=== PATIENT | female | born 1945 | race Caucasian/White ===

== ENCOUNTER 2023-03-19 12:37 | Observation (INO) | payer OTHER, SELFPAY ==
[2023-03-19 12:52] VITALS: BP 141/84; PULSE 81; RESP 16; TEMP 36.7; O2SAT 97; BMI 24.0
[2023-03-19 13:48] LABS: PCR FLU A Negative PCR FLU A (Negative); PCR FLU B Negative PCR FLU B (Negative); PCR RSV Negative PCR RSV (Negative)
[2023-03-19 13:50] LABS: SARS PCR* Negative SARS-CoV-2 (Negative)
--- NOTE | 2023-03-19 16:35 | CRLHL7_ITS ---
For Patients: As a result of the Century Cures Act, medical imaging exams and procedure reports are released immediately into your electronic medical record. You may view this report before your referring provider. If you have questions, please contact your health care provider. CLINICAL HISTORY: Neck pain and vertigo. TECHNIQUE: CTA neck with contrast bolus tracking. 3D angiographic rendering using maximum intensity projection (MIP) and images permanently archived. COMPARISON: None available. 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 The origins of the great vessels are patent. The bilateral common carotid arteries are patent. The origins of the ICAs are patent without significant stenosis by NASCET criteria. The more distal cervical right ICA is patent. The origins and cervical segments of the vertebral arteries are patent. 5mm hypodense nodule in the left lobe of the thyroid gland. 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 Please note that all CT scans at this facility use dose modulation, iterative reconstruction, and/or weight-based dosing when appropriate to reduce radiation dose to as low as reasonably achievable. Dictated by Simone Palumbo MD @ 03/19/2023 6:54:01 PM (Electronically Signed)
--- NOTE | 2023-03-19 16:35 | CRLHL7_ITS ---
For Patients: As a result of the Century Cures Act, medical imaging exams and procedure reports are released immediately into your electronic medical record. You may view this report before your referring provider. If you have questions, please contact your health care provider. CLINICAL HISTORY: Neck pain and vertigo. TECHNIQUE: CTA head with contrast bolus tracking. 3D angiographic rendering using maximum intensity projection (MIP) and images permanently archived. COMPARISON: None available. FINDINGS: The petrous, cavernous, and supraclinoid segments of the internal carotid arteries are patent. The anterior and middle cerebral arteries are patent. The anterior communicating artery is visualized and is within normal limits. The intracranial vertebral arteries, basilar trunk, and posterior cerebral arteries are patent. No intracranial proximal large vessel occlusion or flow-limiting luminal stenosis. No evidence of cerebral aneurysm. No findings to suggest an arterial-venous shunting lesion. IMPRESSION: No intracranial proximal large vessel occlusion, flow-limiting luminal stenosis, or cerebral aneurysm. Please note that all CT scans at this facility use dose modulation, iterative reconstruction, and/or weight-based dosing when appropriate to reduce radiation dose to as low as reasonably achievable. Dictated by Simone Palumbo MD @ 03/19/2023 6:56:22 PM (Electronically Signed)
--- NOTE | 2023-03-19 16:47 | ED_ITS ---
HPI - General Adult General Date Seen: 03/19/23 Chief complaint: Nausea/Vomiting Stated complaint: possible flu Time Seen by Provider: 03/19/23 16:24 Source: patient and family Mode of arrival: ambulatory Limitations: no limitations History of Present Illness HPI narrative: Patient is a 77-year-old woman here with her daughter. She lives independently in her own home. Around 7:00 p.m. last night she developed vertigo, nausea vomiting and balance difficulties. She also developed some pain in the right lateral neck at that time. She denies any trauma to her head or neck. She says she gets headaches every day for the past 2 years. She has no prior history of vertigo. About 1 week ago she had some right ear pain which she thought was perhaps an ear infection, those symptoms have improved. She has not had fevers, diarrhea, abdominal pain, chest pain, palpitations or fainting. She did have difficulty getting here because whenever she moves her head, stands up or tries to walk she gets dry heaves. She denies other neurologic symptoms. Related Data Home Medications Medication Instructions Recorded Confirmed atorvastatin 10 mg tablet 10 mg PO DAILY 03/19/23 03/19/23 bupropion HCl 150 mg tablet,12 hr 150 mg PO Q12H 03/19/23 03/19/23 sustained-release raloxifene 60 mg tablet 60 mg PO DAILY 03/19/23 03/19/23 Allergies Allergy/AdvReac Type Severity Reaction Status Date / Time No Known Drug Allergies Allergy Verified 03/19/23 12:51 Review of Systems Status of ROS: Reports: 10 or more systems reviewed and unremarkable except as noted in History and below PFSH PFS Social History Smoking Status: Never smoker Do you use any of these nicotine containing products: None Second hand tobacco smoke exposure: No How often do you have a drink containing alcohol: never AUDIT-C Alcohol total score: 0 Non-prescribed substance use: denies use service: No Exam Narrative: Exam Narrative: Vital signs as noted above. In general, an alert, well-appearing patient. Comfortable sitting still in bed. Head: Normocephalic, atraumatic. Eyes: Pupils are equal reactive. Extraocular movements are full. Conjunctivae are normal. Mild nystagmus noted on rightward gaze. ENT: Mucous membranes are moist. Throat is normal. Tongue is midline. Neck: Supple without lymphadenopathy. Some tenderness along the right side of her neck, no masses, erythema, bruit. Heart: Regular rate and rhythm. No murmur or rub. Lungs: Clear bilaterally. No increased work of breathing, crackles or wheezes. Abdomen: Soft and nontender. No organomegaly. Extremities: Well perfused. No edema. No calf tenderness. Pulses intact. Neurologic: Patient is alert and oriented to person and place. Speech is fluent. Face is symmetric. Moves all extremities equally. Cerebellar function intact by finger-nose and heel-oleary testing. Affect: Normal. Skin: Warm and dry. Well perfused. Const: Vital Signs, click to edit/add: Vital Signs - 24 hr 03/19/23 12:52 Temperature 98.1 F Pulse Rate [Pulse Oximeter] 81 Respiratory Rate 16 Blood Pressure [Le ft Upper Arm] 141/84 H Pulse Oximetry 97 Oxygen Delivery Me thod Room Air Documenting provider has reviewed patient's vital signs: yes Course Course ED Course: Given her age, daily headaches, right neck pain, I elected to do some imaging. MRI is not available due to the hour of the day, getting a CT angiogram of the head and neck and a plain CT of the head. Labs pending. We will go ahead and treat symptoms of vertigo with Zofran, fluids, meclizine. By my review, CT of the head did not show acute findings. Final radiology read is negative. 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 The origins of the great vessels are patent. The bilateral common carotid arteries are patent. The origins of the ICAs are patent without significant stenosis by NASCET criteria. The more distal cervical right ICA is patent. The origins and cervical segments of the vertebral arteries are patent. 5mm hypodense nodule in the left lobe of the thyroid gland. 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 I discussed these findings with Dr. Liu, on-call for Neurology at [facility]. She feels that this is probably a chronic finding and does not require acute intervention. She did recommend MRI to evaluate for stroke given patient's age and onset of symptoms, but given that she has been symptomatic for 24 hours at this point this does not need to be done urgently. Plan will be admission to the hospital for MRI tomorrow morning. She still feels dizzy but is improved after medications. Labs are unremarkable. Vital Signs Vital signs: Initial Vital Signs Temperature 98.1 F 03/19/23 12:52 Temperature Source Temporal Artery Scan 03/19/23 12:52 Pulse Rate 81 03/19/23 12:52 Pulse Rhythm Regular 03/19/23 12:52 Pulse Strength 3+ Normal 03/19/23 12:52 Respiratory Rate 16 03/19/23 12:52 Blood Pressure 141/84 H 03/19/23 12:52 Blood Pressure Mean 103 03/19/23 12:52 Blood Pressure Position Sitting 03/19/23 12:52 Pulse Oximetry 97 03/19/23 12:52 Oxygen Delivery Method Room Air 03/19/23 12:52 Vital Signs Temperature 98.1 F 03/19/23 12:52 Pulse Rate 81 03/19/23 12:52 Respiratory Rate 16 03/19/23 12:52 Blood Pressure 141/84 H 03/19/23 12:52 Pulse Oximetry 97 03/19/23 12:52 Oxygen Delivery Method Room Air 03/19/23 12:52 Temperature 98.1 F 03/19/23 12:52 Pulse Rate 81 03/19/23 12:52 Respiratory Rate 16 03/19/23 12:52 Blood Pressure 141/84 H 03/19/23 12:52 Pulse Oximetry 97 03/19/23 12:52 Oxygen Delivery Method Room Air 03/19/23 12:52 Medical Decision Making Lab Data Labs: Lab Results 03/19/23 03/19/23 03/19/23 Range/Units 16:36 17:20 17:29 WBC 5.56 (4.50-11.00) K/uL RBC 4.68 (4.00-5.20) m/uL Hgb 14.3 (12.0-16.0) gm/dL Hct 44.3 (33.0-51.0) % MCV 95 (80-100) fL MCH 31 (26-34) pg MCHC 32 (32-36) gm/dL RDW Coeff of Parth 13.2 (11.5-15.5) % Plt Count 303 (140-440) K/uL Neut % (Auto) 60.1 (42.0-72.0) % Lymph % (Auto) 29.5 (20-44) % [place] % (Auto) 8.5 (0.0-11.0) % Eos % (Auto) 1.3 (0.0-7.0) % Baso % (Auto) 0.4 (0.0-3.0) % Neut # (Auto) 3.35 (1.7-7.0) K/uL Lymph # (Auto) 1.64 (0.90-2.90) K/uL [place] # (Auto) 0.50 (0.00-0.90) K/UL Eos # (Auto) 0.07 (0.00-0.50) K/uL Baso # (Auto) 0.02 (0.00-0.30) K/uL Abs Immat Gran (auto) 0.01 (0.00-0.30) K/uL Imm/Tot Granulo (auto) 0.2 % Sodium 143 (135-149) mmol/L Potassium 3.9 (3.6-5.1) mmol/L Chloride 110 (96-114) mmol/L Carbon Dioxide 27 (20-32) mmol/L Anion Gap 6 L (7-15) mEq/L BUN 24 (7-30) mg/dL Creatinine 0.6 (0.5-1.5) mg/dL Estimated Creat Clear 38.80 Estimated GFR 92 ml/min Glucose 90 (60-115) mg/dL Calcium 8.8 (8.4-10.6) mg/dL Total Bilirubin 0.4 (0.1-1.5) mg/dL Direct Bilirubin 0.0 (0.0-0.5) mg/dL AST 38 H (12-35) U/L ALT 28 (4-35) U/L Alkaline Phosphatase 75 (40-150) U/L Total Protein 6.8 (6.0-8.3) g/dL Albumin 4.0 (3.3-5.0) g/dL SARS-CoV-2 (PCR) (Negative) Influenza Type A (PCR) (Negative) Influenza Type B (PCR) (Negative) RSV (PCR) (Negative) POC Creatinine 0.7 (0.6-1.3) mg/dl POC Troponin I 0.00 L (0.01-0.04) ng/ml 03/19/23 Range/Units Unknown WBC (4.50-11.00) K/uL RBC (4.00-5.20) m/uL Hgb (12.0-16.0) gm/dL Hct (33.0-51.0) % MCV (80-100) fL MCH (26-34) pg MCHC (32-36) gm/dL RDW Coeff of Parth (11.5-15.5) % Plt Count (140-440) K/uL Neut % (Auto) (42.0-72.0) % Lymph % (Auto) (20-44) % [place] % (Auto) (0.0-11.0) % Eos % (Auto) (0.0-7.0) % Baso % (Auto) (0.0-3.0) % Neut # (Auto) (1.7-7.0) K/uL Lymph # (Auto) (0.90-2.90) K/uL [place] # (Auto) (0.00-0.90) K/UL Eos # (Auto) (0.00-0.50) K/uL Baso # (Auto) (0.00-0.30) K/uL Abs Immat Gran (auto) (0.00-0.30) K/uL Imm/Tot Granulo (auto) % Sodium (135-149) mmol/L Potassium (3.6-5.1) mmol/L Chloride (96-114) mmol/L Carbon Dioxide (20-32) mmol/L Anion Gap (7-15) mEq/L BUN (7-30) mg/dL Creatinine (0.5-1.5) mg/dL Estimated Creat Clear Estimated GFR ml/min Glucose (60-115) mg/dL Calcium (8.4-10.6) mg/dL Total Bilirubin (0.1-1.5) mg/dL Direct Bilirubin (0.0-0.5) mg/dL AST (12-35) U/L ALT (4-35) U/L Alkaline Phosphatase (40-150) U/L Total Protein (6.0-8.3) g/dL Albumin (3.3-5.0) g/dL SARS-CoV-2 (PCR) Negative SARS-CoV-2 (Negative) Influenza Type A (PCR) Negative PCR FLU A (Negative) Influenza Type B (PCR) Negative PCR FLU B (Negative) RSV (PCR) Negative PCR RSV (Negative) POC Creatinine (0.6-1.3) mg/dl POC Troponin I (0.01-0.04) ng/ml Discharge Plan Discharge Prescriptions: No Action bupropion HCl 150 mg tablet sustained-release 12 hr 150 mg PO Q12H atorvastatin 10 mg tablet 10 mg PO DAILY raloxifene 60 mg tablet 60 mg PO DAILY Follow Up/Referrals: Alley Dixon MD [Primary Care Provider] -
--- NOTE | 2023-03-19 16:48 | CRLHL7_ITS ---
For Patients: As a result of the Century Cures Act, medical imaging exams and procedure reports are released immediately into your electronic medical record. You may view this report before your referring provider. If you have questions, please contact your health care provider. CLINICAL HISTORY: Daily headaches; vertigo. TECHNIQUE: Standard helical CT image acquisition of the brain was performed. COMPARISON: Head CT dated 03/01/2018. FINDINGS: There is no intracranial hemorrhage, extra-axial collection, mass effect, or midline shift. Ott-white matter differentiation is preserved. Mild generalized parenchymal volume loss. No acute hydrocephalus. Patchy hypoattenuation in the white matter of both hemispheres likely reflects sequela of chronic small vessel ischemia. Intracranial atherosclerotic calcification. The calvarium is unremarkable. The orbits are unremarkable. Subtotal opacification of the left sphenoid sinus and complete opacification of the right sphenoid sinus with internal areas of mineralization/calcification. Thickening of the osseous de [place] vega of the right greater than left sphenoid sinus suggesting chronic sinusitis. The mastoid air cells are unremarkable. 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 IMPRESSION: 1. No CT evidence of acute intracranial abnormality. 2. Senescent changes including generalized parenchymal volume loss and findings likely reflecting sequela of chronic small vessel ischemia. 3. Chronic bilateral sphenoid sinusitis. Please note that all CT scans at this facility use dose modulation, iterative reconstruction, and/or weight-based dosing when appropriate to reduce radiation dose to as low as reasonably achievable. Dictated by Simone Palumbo MD @ 03/19/2023 6:31:44 PM (Electronically Signed)
[2023-03-19] MEDS: ONDANSETRON 2 MG/ML inj 4 MG IVP (17:21)
[2023-03-19] MEDS: 0.9 % SODIUM CHLORIDE 1000 ml 1,000 ML IV (17:21)
[2023-03-19] MEDS: MECLIZINE HCL 25 MG TABLET PO (17:21)
[2023-03-19 17:33] LABS: Creatinine, Point-of-Care* 0.7 mg/dl (0.6-1.3)
[2023-03-19 17:43] LABS: Basophils Absolute Auto 0.02 K/uL (0.00-0.30); Basophils Percent Auto 0.4 % (0.0-3.0); Eosinophils Absolute Auto 0.07 K/uL (0.00-0.50); Eosinophils Percent Auto 1.3 % (0.0-7.0); Hematocrit 44.3 % (33.0-51.0); Hemoglobin* 14.3 gm/dL (12.0-16.0); Immature Granulocytes Abs Auto 0.01 K/uL (0.00-0.30); Immature Granulocytes Pct Auto 0.2 %; Lymphocytes Absolute Auto 1.64 K/uL (0.90-2.90); Lymphocytes Percent Auto 29.5 % (20-44); Mean Corpuscular HGB Conc 32 gm/dL (32-36); Mean Corpuscular Hemoglobin 31 pg (26-34); Mean Corpuscular Volume 95 fL (80-100); Monocytes Percent Auto 8.5 % (0.0-11.0); Neutrophils Absolute Auto 3.35 K/uL (1.7-7.0); Neutrophils Percent Auto 60.1 % (42.0-72.0); Platelet Count* 303 K/uL (140-440); RDW Coefficient of Variation % 13.2 % (11.5-15.5); Red Blood Count 4.68 m/uL (4.00-5.20); White Blood Count* 5.56 K/uL (4.50-11.00)
[2023-03-19 17:48] LABS: Slide Review Reflex No
[2023-03-19 17:58] LABS: Chloride* 110 mmol/L (96-114); Potassium* 3.9 mmol/L (3.6-5.1); Sodium* 143 mmol/L (135-149)
[2023-03-19 18:00] LABS: Creatinine* 0.6 mg/dL (0.5-1.5); Estimated Glomerular Filt Rate 92 ml/min
[2023-03-19 18:01] LABS: Alanine Aminotransferase* 28 U/L (4-35); Alkaline Phosphatase* 75 U/L (40-150); Anion Gap 6 mEq/L (7-15); Aspartate Amino Transferase* 38 U/L (12-35); Bilirubin Total* 0.4 mg/dL (0.1-1.5); Blood Urea Nitrogen* 24 mg/dL (7-30); Carbon Dioxide* 27 mmol/L (20-32); Glucose* 90 mg/dL (60-115); Total Protein* 6.8 g/dL (6.0-8.3)
[2023-03-19 18:02] LABS: Calcium* 8.8 mg/dL (8.4-10.6)
[2023-03-19] MEDS: ASPIRIN 81 MG TAB.CHEW 324 MG PO (19:29)
--- NOTE | 2023-03-19 19:51 | PM.IMHP1 ---
Hospitalist- H&P: HPI History of Present Illness Date Seen: 03/19/23 Chief complaint: Vertigo Narrative: Kemi Smith is a 77 year old female admitted through the emergency department with onset last evening of vertigo. She was in her usual state of good health until after dinner last night when she felt dizzy. She was trying to walk to a chair to sit down and she fell over. She did not injure herself or hit her head. As she was laying down she recognized that the room was spinning. She started having vomiting. She had recurrent vomiting through the evening. Eventually she fell asleep. When she awoke around 4:00 a.m. she still had vertigo. She was unable to get up and walk due to being unsteady on her feet and persistent feeling of the room spinning. Because of this she came to the emergency room for evaluation. She reports no other neurologic symptoms. She has no blurry vision or double vision. She has no numbness or tingling or weakness. Two weeks ago she had a ear ache in her right ear which has resolved. She has not had a recent respiratory illness. No fever, cold, cough. No recent change in her hearing. She has not had a head injury. She has had no previous problems like this. No previous stroke or TIA. Review of Systems Narrative: Prior to the last day she reports feeling entirely well. [facility] Medical History (Updated 03/19/23 @ 20:07 by Guanaco Whitney MD) Normal colonoscopy Seasonal allergic rhinitis ?J30.2 - Other seasonal allergic rhinitis (ICD-10) Sensorineural hearing loss ?H90.5 - Unspecified sensorineural hearing loss (ICD-10) Restless legs syndrome ?G25.81 - Restless legs syndrome (ICD-10) Osteoporosis ?M81.0 - Age-related osteoporosis without current pathological fracture (ICD-10) Hyperlipidemia ?E78.5 - Hyperlipidemia, unspecified (ICD-10) Surgical History (Updated 03/19/23 @ 19:57 by Guanaco Whitney MD) H/O nasal septoplasty ?Z98.890 - Other specified postprocedural states (ICD-10) H/O vaginal hysterectomy ?Z90.710 - Acquired absence of both cervix and uterus (ICD-10) History of tonsillectomy and adenoidectomy ?Z90.89 - Acquired absence of other organs (ICD-10) H/O breast biopsy ?Z98.890 - Other specified postprocedural states (ICD-10) H/O tubal ligation ?Z98.51 - Tubal ligation status (ICD-10) Family History (Updated 03/19/23 @ 19:58 by Guanaco Whitney MD) Daughter Thyroid disease Diabetes Father Coronary artery disease Social History (Updated 03/19/23 @ 20:00 by Guanaco Whitney MD) Narrative: She lives alone in her own home in [place]. 1 year ago. She has 2 daughters living in [place]. Granddaughter, Iza, living in [place] is healthcare power of patent prosecution attorney. Code status is DNR. She does not smoke. She does not drink alcohol. Smoking Status: Never smoker Do you use any of these nicotine containing products: None Second hand tobacco smoke exposure: No How often do you have a drink containing alcohol: never AUDIT-C Alcohol total score: 0 Non-prescribed substance use: denies use service: No Meds Home Medications and Allergies Home Medications Medication Instructions Recorded Confirmed Type atorvastatin 10 mg tablet 10 mg PO DAILY 03/19/23 03/19/23 History bupropion HCl 150 mg tablet,12 hr 150 mg PO Q12H 03/19/23 03/19/23 History sustained-release fluticasone propionate 50 intranasal 03/19/23 History mcg/actuation nasal spray,suspension raloxifene 60 mg tablet 60 mg PO DAILY 03/19/23 03/19/23 History Allergies Allergy/AdvReac Type Severity Reaction Status Date / Time No Known Drug Allergies Allergy Verified 03/19/23 12:51 Exam Narrative: Exam Narrative: She is alert and appears in no distress. Mood and affect are bright. Head is without evidence of trauma. Eyes are normal. Pupils are equal round reactive to light. Extraocular movements are full. She has conjugate gaze. Visual martinez are intact. She has no facial asymmetry. Pinnas external canals TMs bilaterally normal. Oropharynx is normal. Tongue is midline. Mucous membranes are moist. Neck is supple without mass or adenopathy. Having her turn head [id number] does not reproduce vertigo or dizziness. Respirations are clear to auscultation. Breathing is unlabored. Cardiovascular: S1, S2, regular rate and rhythm. No murmur gallop or rub. Abdomen: Bowel sounds active. Abdomen is soft without tenderness or mass. Upper extremity strength testing shows 5/5 strength in finger extension, emergency management consultant strength, wrist flexion, wrist extension, elbow flexion and extension, shoulder flexion extension bilaterally. [id number] is normal and accurate bilaterally. Lower extremity strength is 5/5 in hip flexion, knee flexion extension, ankle dorsiflexion and plantar flexion and great toe dorsiflexion bilaterally. Heel-oleary is bilaterally normal. She has no edema. Intact peripheral pulses. Const: Vital Signs, click to edit/add: Vital Signs - 24 hr 03/19/23 12:52 Temperature 98.1 F Pulse Rate [Pulse Oximeter] 81 Respiratory Rate 16 Blood Pressure [Le ft Upper Arm] 141/84 H Pulse Oximetry 97 Oxygen Delivery Me thod Room Air Documenting provider has reviewed patient's vital signs: yes Hospitalist - H&P: Result Labs Labs: Short CBC 03/19/23 Range/Units 17:20 WBC 5.56 (4.50-11.00) K/uL Hgb 14.3 (12.0-16.0) gm/dL Hct 44.3 (33.0-51.0) % Plt Count 303 (140-440) K/uL BMP 03/19/23 17:20 Sodium 143 Potassium 3.9 Chloride 110 Carbon Dioxide 27 BUN 24 Creatinine 0.6 Glucose 90 Calcium 8.8 Liver Function 03/19/23 Range/Units 17:20 Total Bilirubin 0.4 (0.1-1.5) mg/dL Direct Bilirubin 0.0 (0.0-0.5) mg/dL AST 38 H (12-35) U/L ALT 28 (4-35) U/L Alkaline Phosphatase 75 (40-150) U/L Albumin 4.0 (3.3-5.0) g/dL Imaging CT scan - head: Radiologist's impression: CLINICAL HISTORY: Daily headaches; vertigo. TECHNIQUE: Standard helical CT image acquisition of the brain was performed. COMPARISON: Head CT dated 03/01/2018. FINDINGS: There is no intracranial hemorrhage, extra-axial collection, mass effect, or midline shift. Ott-white matter differentiation is preserved. Mild generalized parenchymal volume loss. No acute hydrocephalus. Patchy hypoattenuation in the white matter of both hemispheres likely reflects sequela of chronic small vessel ischemia. Intracranial atherosclerotic calcification. The calvarium is unremarkable. The orbits are unremarkable. Subtotal opacification of the left sphenoid sinus and complete opacification of the right sphenoid sinus with internal areas of mineralization/calcification. Thickening of the osseous de [place] vega of the right greater than left sphenoid sinus suggesting chronic sinusitis. The mastoid air cells are unremarkable. 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 IMPRESSION: 1. No CT evidence of acute intracranial abnormality. 2. Senescent changes including generalized parenchymal volume loss and findings likely reflecting sequela of chronic small vessel ischemia. 3. Chronic bilateral sphenoid sinusitis. CT- Other: Radiologist's impression: CTA head: TECHNIQUE: CTA head with contrast bolus tracking. 3D angiographic rendering using maximum intensity projection (MIP) and images permanently archived. COMPARISON: None available. FINDINGS: The petrous, cavernous, and supraclinoid segments of the internal carotid arteries are patent. The anterior and middle cerebral arteries are patent. The anterior communicating artery is visualized and is within normal limits. The intracranial vertebral arteries, basilar trunk, and posterior cerebral arteries are patent. No intracranial proximal large vessel occlusion or flow-limiting luminal stenosis. No evidence of cerebral aneurysm. No findings to suggest an arterial-venous shunting lesion. IMPRESSION: No intracranial proximal large vessel occlusion, flow-limiting luminal stenosis, or cerebral aneurysm. CLINICAL HISTORY: Neck pain and vertigo. CTA neck: TECHNIQUE: CTA neck with contrast bolus tracking. 3D angiographic rendering using maximum intensity projection (MIP) and images permanently archived. COMPARISON: None available. 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 The origins of the great vessels are patent. The bilateral common carotid arteries are patent. The origins of the ICAs are patent without significant stenosis by NASCET criteria. The more distal cervical right ICA is patent. The origins and cervical segments of the vertebral arteries are patent. 5mm hypodense nodule in the left lobe of the thyroid gland. 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 Assessment and Plan Assessment and plan (1) Vertigo: Problem comment: Patient presents with 1 day history of vertigo. Clinically improved today. Stroke Neurology recommends MRI to assess for posterior circulation stroke. Status: Acute (2) History of dissection of internal carotid artery: Problem comment: Stroke neurologist felt this was not acute. Treatment is daily aspirin. Status: Acute Plan Patient is admitted to the hospital for management of vertigo, monitoring for stroke and evaluation of stroke risk factors. MRI in the morning. Total time spent today is 60 minutes, 45 minutes in coordination of care discussing with patient other providers ongoing evaluation management of vertigo
[2023-03-19 20:30] VITALS: BP 171/86; RESP 16; TEMP 36.7; O2SAT 97; BMI 23.9
[2023-03-19] MEDS: ACETAMINOPHEN 325 MG TABLET 650 MG PO (21:17)
[2023-03-19] MEDS: SODIUM CHLORIDE 0.9 % (FLUSH) 10 ML SYRINGE 5 ML IVF (21:18)
[2023-03-19 23:00] VITALS: BP 139/77; RESP 16; TEMP 36.7; O2SAT 96
[2023-03-19 23:14] VITALS: PULSE 81
[2023-03-20] MEDS: ACETAMINOPHEN 325 MG TABLET 650 MG PO ×2 (01:48→08:44)
[2023-03-20 03:00] VITALS: BP 141/81; PULSE 95; RESP 18; O2SAT 95
--- NOTE | 2023-03-20 05:09 | PC.NURSE ---
Pt arrived to unit approx 2024, pleasant and cooperative. states she has little vertigo, denies N/V. C/O headache and neck pain, prn tylenol administered and pt headache and neck pain 0/10. able to sleep during night. SBA to br, tolerated activity fair, vertigo present. tolerated po intake.
[2023-03-20 07:00] VITALS: BP 139/75; PULSE 71; PULSE 72; RESP 18; TEMP 36.5; O2SAT 96
[2023-03-20] MEDS: ASPIRIN 81 MG TAB.CHEW PO (08:43)
[2023-03-20] MEDS: buPROPion HCL SR 150 MG TAB PO (08:43)
--- NOTE | 2023-03-20 11:15 | CRLHL7_ITS ---
For Patients: As a result of the Century Cures Act, medical imaging exams and procedure reports are released immediately into your electronic medical record. You may view this report before your referring provider. If you have questions, please contact your health care provider. Indication: Vertigo. Technique: Multiplanar, multisequence MRI of the brain was performed without intravenous contrast. Comparison: CT head 03/19/2023. Findings: Slight thinning of the corpus callosum. The pituitary gland and clivus appear intact. Mild degenerative change visualized upper cervical spine. There is no restricted diffusion. No intracranial hemorrhage. The ventricles are proportionate to the cerebral sulci. The 4th ventricle appears midline. The basal cisterns appear patent. No abnormal extra-axial fluid collection identified. Mild parenchymal volume loss. Moderate to severe T2 FLAIR hyperintense foci within the subcortical and periventricular white matter, favored to represent chronic ischemic microvascular disease. There is no intracranial mass, abnormal mass-effect or midline shift identified. Major intracranial vascular flow voids appear grossly intact. Both globes are preserved. Mild to moderate paranasal sinus mucosal disease. Impression: 1. No acute/subacute infarct. 2. Moderate to severe chronic ischemic microvascular disease. Dictated by Irving Collier MD @ 03/20/2023 12:56:09 PM (Electronically Signed)
[2023-03-20 14:00] VITALS: BP 145/96; BP 147/93; BP 160/94; PULSE 105; PULSE 92; PULSE 97
--- NOTE | 2023-03-20 16:05 | P.DS_ITS ---
DS: Providers Provider Time Seen by Provider: 15:00 Date Seen: 03/20/23 Date of admission: 03/19/23 20:25 Primary care physician: Alley Dxion MD Admitting Clinician: Guanaco Whitney MD Consults: 03/19/23 19:48 Consult to Occupational Therapy [CONS] Routine Comment: Reason(s) for OT Consult:: Evaluate and Treat Any Restrictions?:: No Restrictions Consult to Physical Therapy [CONS] Routine Comment: Reason(s) for PT Consult:: Evaluate and Treat Any Restrictions?:: No Restrictions Attending Physician on discharge: Kenroy Grace MD Date of Discharge: 03/20/23 DS: Diagnosis Discharge Diagnosis (1) Vertigo: Status: Acute Problem details: Patient presents with 1 day history of vertigo. Clinically improved today. Stroke Neurology recommends MRI to assess for posterior circulation stroke. (2) Acute vestibular neuritis: Status: Acute (3) History of dissection of internal carotid artery: Status: Acute Problem details: Stroke neurologist felt this was not acute. Treatment is daily aspirin. (4) Small vessel disease, cerebrovascular: Status: Acute DS: Summary Hospital Course Hospital Course: History of present illness: ?Kemi Smith is a 77 year old female admitted through the emergency department with onset last evening of vertigo. She was in her usual state of good health until after dinner last night when she felt dizzy. She was trying to walk to a chair to sit down and she fell over. She did not injure herself or hit her head. As she was laying down she recognized that the room was spinning. She started having vomiting. She had recurrent vomiting through the evening. Eventually she fell asleep. When she awoke around 4:00 a.m. she still had vertigo. She was unable to get up and walk due to being unsteady on her feet and persistent feeling of the room spinning. Because of this she came to the emergency room for evaluation. She reports no other neurologic symptoms. She has no blurry vision or double vision. She has no numbness or tingling or weakness. Two weeks ago she had a ear ache in her right ear which has resolved. She has not had a recent respiratory illness. No fever, cold, cough. No recent change in her hearing. She has not had a head injury. She has had no previous problems like this. No previous stroke or TIA. We treated patient symptomatically when she arrived on the hospital floor and gradually her symptoms for the most part entirely resolved. We were not able to see spontaneous nystagmus. We were not able to induce any nystagmus. She did much better with use of a walker for her balance. CT angiogram of the head and neck revealed the chronic carotid dissection, not acute. Discussed with neurologist who recommended chronic regular use of baby aspirin once daily hereafter. MR scan of the brain demonstrated no posterior cerebellar stroke or hematoma, only chronic small vessel ischemic changes. Patient discharged home with ongoing assessment and treatment per physical therapy and occupational therapy. She will keep follow-up appointments with her primary care physician and return to the clinic or hospital sooner as warranted. Status at Discharge Functional status at discharge: uses cane/walker Overall status at discharge: patient is progressing back to baseline Time Spent with Patient Time attestation: Total time spent providing and/or coordinating discharge services: Time spent: Greater than 30 minutes Exam Narrative: Exam Narrative: She is alert and appears in no distress. Mood and affect are bright. Head is without evidence of trauma. Eyes are normal. Pupils are equal round reactive to light. Extraocular movements are full. She has conjugate gaze. Visual martinez are intact. She has no facial asymmetry. Pinnas external canals TMs bilaterally normal. Oropharynx is normal. Tongue is midline. Mucous membranes are moist. Neck is supple without mass or adenopathy. Having her turn head [id number] does not reproduce vertigo or dizziness. Respirations are clear to auscultation. Breathing is unlabored. Cardiovascular: S1, S2, regular rate and rhythm. No murmur gallop or rub. Abdomen: Bowel sounds active. Abdomen is soft without tenderness or mass. Upper extremity strength testing shows 5/5 strength in finger extension, communications manager strength, wrist flexion, wrist extension, elbow flexion and extension, shoulder flexion extension bilaterally. Bxmnku-vqvq-nuoabs is normal and accurate bilaterally. Lower extremity strength is 5/5 in hip flexion, knee flexion extension, ankle dorsiflexion and plantar flexion and great toe dorsiflexion bilaterally. Heel-oleary is bilaterally normal. She has no edema. Intact peripheral pulses. Transferring and ambulating independently with use of walker. No orthostatic blood pressure or heart rate changes or symptoms. Const: Vital Signs, click to edit/add: Vital Signs - 24 hr 03/19/23 20:30 03/19/23 20:30 03/19/23 23:00 Temperature 98.1 F 98.1 F Pulse Rate Pulse Rate [Pulse Oximeter] Respiratory Rate 16 16 16 Blood Pressure [Le ft Arm] 171/86 H 139/77 Pulse Oximetry 97 97 96 Oxygen Delivery Me thod Room Air Room Air Room Air 03/19/23 23:14 03/20/23 03:00 03/20/23 07:00 Temperature Pulse Rate 81 71 Pulse Rate [Pulse Oximeter] 95 Respiratory Rate 18 Blood Pressure [Le ft Arm] 141/81 H Pulse Oximetry 95 Oxygen Delivery Me thod Room Air 03/20/23 07:00 Temperature 97.7 F Pulse Rate Pulse Rate [Pulse Oximeter] 72 Respiratory Rate 18 Blood Pressure [Le ft Arm] 139/75 Pulse Oximetry 96 Oxygen Delivery Me thod Room Air Documenting provider has reviewed patient's vital signs: yes DS: Data Data Completed and Pending Labs on day of discharge: Labs from last 24 hours 03/19/23 03/19/23 03/19/23 17:29 17:20 16:36 WBC 5.56 RBC 4.68 Hgb 14.3 Hct 44.3 MCV 95 MCH 31 MCHC 32 RDW Coeff of Parth 13.2 Plt Count 303 Neut % (Auto) 60.1 Lymph % (Auto) 29.5 [place] % (Auto) 8.5 Eos % (Auto) 1.3 Baso % (Auto) 0.4 Neut # (Auto) 3.35 Lymph # (Auto) 1.64 [place] # (Auto) 0.50 Eos # (Auto) 0.07 Baso # (Auto) 0.02 Abs Immat Gran (auto) 0.01 Imm/Tot Granulo (auto) 0.2 Sodium 143 Potassium 3.9 Chloride 110 Carbon Dioxide 27 Anion Gap 6 L BUN 24 Creatinine 0.6 Estimated Creat Clear 38.80 Estimated GFR 92 Glucose 90 Calcium 8.8 Total Bilirubin 0.4 Direct Bilirubin 0.0 AST 38 H ALT 28 Alkaline Phosphatase 75 Total Protein 6.8 Albumin 4.0 POC Creatinine 0.7 POC Troponin I 0.00 L Imaging MR Brain: Attestation: I have reviewed the pertinent imaging results. Radiologist's impression: Findings: Slight thinning of the corpus callosum. The pituitary gland and clivus appear intact. Mild degenerative change visualized upper cervical spine. There is no restricted diffusion. No intracranial hemorrhage. The ventricles are proportionate to the cerebral sulci. The 4th ventricle appears midline. The basal cisterns appear patent. No abnormal extra-axial fluid collection identified. Mild parenchymal volume loss. Moderate to severe T2 FLAIR hyperintense foci within the subcortical and periventricular white matter, favored to represent chronic ischemic microvascular disease. There is no intracranial mass, abnormal mass-effect or midline shift identified. Major intracranial vascular flow voids appear grossly intact. Both globes are preserved. Mild to moderate paranasal sinus mucosal disease. Impression: 1. No acute/subacute infarct. 2. Moderate to severe chronic ischemic microvascular disease. CT scan - head: Attestation: I have reviewed the pertinent imaging results. Radiologist's impression: 03/19/2023 Impression: 1. No CT evidence of acute intracranial abnormality. 2. Senescent changes including generalized parenchymal volume loss and findings likely reflecting sequela of chronic small vessel ischemia. 3. Chronic bilateral sphenoid sinusitis. CT angiogram of neck: Attestation: I have reviewed the pertinent imaging results. 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 CT angiogram of the head: Attestation: I have reviewed the pertinent imaging results. Radiologist's impression: IMPRESSION: No intracranial proximal large vessel occlusion, flow-limiting luminal stenosis, or cerebral aneurysm. Discharge Plan Discharge Disposition: Home, Self-Care Date of Admission: 03/19/23 20:25 Attending Provider on Discharge: Kenroy Grace Primary Care Provider: Alley Dixon Condition: Improved Anticipated Discharge Date/Time: 03/20/23 16:30 Discharge Medications: New aspirin [Adult Low Dose Aspirin] 81 mg tablet,delayed release (DR/EC) 81 mg PO DAILY Qty: 100 2RF Continued bupropion HCl 150 mg tablet sustained-release 12 hr 150 mg PO BID atorvastatin 10 mg tablet 10 mg PO HS raloxifene 60 mg tablet 60 mg PO DAILY fluticasone propionate 50 mcg/actuation spray,suspension 1 spray INTRANASAL DAILY Patient Comments: [NO ORIGINAL SIG] cholecalciferol (vitamin D3) 25 mcg (1,000 unit) tablet 25 mcg PO DAILY Discharge Orders: Discharge Order (Routine); Ordered 03/20/23 Ordered By: Kenroy R Sanjay Patient Education: Aspirin (By mouth), Low Fat Diet (DC), Vertigo (DC), Carotid Artery Disease (DC), Dizziness (GEN) Additional Instructions: 1. Keep your appointment with your primary care physician as already set for ne xt week; 2. Use walker when ambulating, for balance; 3. See outpatient physical and occupational therapy to assess and treat; 4. Continue with your other treatment plans. Activity Level: Activity as Tolerated and Use Walker Discharge Diet: Low Fat/Low Cholesterol Follow Up Appointments: Alley Dixon MD [Primary Care Provider] - Forms: [facility]
--- NOTE | 2023-03-20 16:37 | PC.NURSE ---
pt up SBA. pt had slight dizziness upon changing positions this a.m. Pt stated this a.m she had a 6/10 frontal MENDES. Pt was medicated with prn tylenol and ice sharif to neck. Rechecked pt 1 hour after interventions for MENDES and pt stated MENDES gone. pt denied dizziness this afternoon with activity and position changes. Orthostatic BP's done; Dr. Khalil notified. vss stable. LS clr.
== END 2023-03-20 16:05 | disposition home or self-care (01) ==
LOC: ED 19:52 → MEDSURG 20:27
PROVIDERS: Admitting Provider Family Medicine; Emergency Provider Emergency Medicine; PCP Family Medicine; Visit Provider Family Medicine
DX: H81.20 Vestibular neuronitis, unspecified ear (principal); I67.9 Cerebrovascular disease, unspecified; Z86.79 Personal history of other diseases of the circulatory system
CPT/HCPCS: 36415; 70450; 70496; 70498; 70551; 80048; 80076; 82565; 84484; 85025; 87631; 93005; 96361; 96374; 97112; 97116; 97161; 97165; 97535; 99284; 99285; G0378; A9270; J2405; J7030; Q9967; S0106

== ENCOUNTER 2023-04-27 14:30 | Outpatient (RCR) | payer OTHER, SELFPAY ==
--- NOTE | 2023-04-06 17:47 | PT.OPEX ---
Please review and sign the attached outpatient physical therapy evaluation completed on 04/06/23. Thank you. PT [place] Outpatient Eval PT [facility] Outpatient Eval Start: 04/03/23 10:12 Freq: Status: Active Protocol: Document 04/06/23 12:43 TLQ (Rec: 04/06/23 17:39 TLQ [id number]) E-signed By Ana Laura Nicholson DPT Physical Therapy Outpatient Evaluation Insurance Information Recert Due Date 07/05/23 Insurance Name Medicare B Insurance Information/Comments [employer] Choice Medical Diagnosis Vertigo Treating Diagnosis Dizziness R42 Impaired balance R26.81 Cervicalgia M54.2 Referring MD Kenroy Grace MD Subjective Subjective Patient here to address dizziness, has been experiencing it for about a week, was prescribed a medication to help with the dizziness but is no longer taking it. Temporarily used a 4ww to help with her walking since she felt off balance. Feels most dizzy in the mornings. Symptoms have improved since she left the hospital. Typically feels dizzy when she stands up out of a chair and lasts for about a minute. First time she felt dizzy was when she stood up at home, states she was scared to walk because the room was moving. Can feel dizzy sometimes when rolling in bed but only if her eyes are open, doesn't matter which was she rolls. States she had an ear infection about a week before the dizziness started. Has had some hearing loss and buzzing in her ears for the past year, denies new onset since vestibular symptoms began. Experienced dizziness and presented to the ED at [facility] on 03/19/23, imagine performed of neck and head with the following findings indicated in the patient's discharged note on 03/10/23: CT angiogram of the head and neck revealed the chronic carotid dissection, not acute. and MR scan of the brain demonstrated no posterior cerebellar stroke or hematoma, only chronic small vessel ischemic changes. PMHx: depression, osteoporosis , BP medication Pain Comments mild dizziness Current Work Status Retired Preferred Name Kemi Precautions Therapy Limitations/Systems Review Hearing Objective Other/Pertinent Objective Cervical ROM Flexion: 40 degrees Extension: 45 degrees, pain Lateral flexion: 30 degrees BL Rotation: L 50 degrees, R 45 degrees TTP: UT and LS bilaterally Oculomotor screening (wears corrective lenses) H-test (-) Saccades (-) Convergence: 18 cm Cover-uncover test (-) Head thrust test (+) Other assessments Coordination testing (finger to nose): normal Modified vertebral artery test (-) BL VOR cancellation (+) [place] Hallpike: (-) R, (+) L per report of dizziness Horizontal roll test: NT Balance/CTSIB NT due to time constraints Romberg eyes open firm surface : NT Romberg eyes closed firm surface: NT Romberg eyes open foam surface : NT Romberg eyes closed form surface: NT Single leg stance e/o firm surface: NT Gait: slow chandler, no A.D. but has 4WW at home, slowly drifts toward R 4-Item DGI 5/12 Horizontal head turns (0) Vertical head turns (1) Gait on level surfaces (2) Changes in gait speed (2) Functional Test Performed & Score DHI: score 32/100 (MCID 18 points - vestibular) Assessment Assessment/Impression Patient is a 77 year old woman who presents to outpatient physical therapy to address onset of dizziness two weeks ago. Onset of symptoms occurred about a week after patient reports having an ear infection in her right ear, presented to the ED due to dizziness upon standing and feeling the room move around her. Based on today's examination patients vertigo systems appear to be caused by multiple factors: cervicogenic and hypofunction. Possible positional component as patient reported dizziness with L [place] Hallpike but had no observable nystagmus. Hypofunction likely given recent ear infection and positive head impulse test, all other oculomotor screens negative for impairment. Patient denies any new onset of hearing loss or tinnitus. Demonstrates cervical ROM deficits and was tender with palpation of bilateral UT and LS, cervicalgia symptoms likely mimicking positional symptoms with cervical muscle contraction. Patient at risk for falls based on 4-item DGI score, during normal gait patient demonstrates slower chandler (below patient reported norm) without A.D., slowly drifts toward her R. Positive for VOR cancellation deficits. She was educated on vestibular anatomy and different pathologies that may be causing her vertigo symptoms. She was instructed through an initial HEP to address cervical symptoms and VOR cancellation, provided with a printout for home. Patient will benefit from skilled physical therapy interventions to address cervicogenic causes of dizziness and strengthening vestibular response to reduce dizziness and restore patient to baseline gait and balance. Primary Functional Limitations dizziness, sit to stand, rolling, abnormal gait, cervical mobility Plan of Care Rehabilitation Potential Good Physical Therapy Goals Therapy goals to be completed in 8 weeks: -Patient will report resolution of dizziness with all head positions and positional changes for >5 consecutive days to improve safety with transfers and daily activities. -Patient will display improved Romberg balance on foam surface with eyes closed >5 sec with minimal sway to decrease falls risk. -Patient will report >18 point (MCID) improvement on DHI questionnaire to significantly improve tolerance to functional activities. -Patient will display improved 4-item DGI testing >10/12 to decrease falls risk with dynamic gait tasks. Treatment Plan/Direct Interventions Canalith Repositioning,Manual Therapy,Neuromuscular Re-ed, Self-Care/Home Management, Therapeutic Activities, Therapeutic Exercises Frequency/Duration 1-2x/week for 8 weeks, decreasing frequency prn Patient Will Be Discharged From Therapy Completion of LTG(s),Skills Plateau,Independent w/HEP, Independently Progressing Evaluation Billing Untimed Code Treatment Minutes 35 Complexity Low Certification Information Initial Certification Date 04/06/23 Ending Certification Date 07/05/23 Provider Signature Shows Agreement With POC & Medical Necessity Physician Signature & Date Requested Please Sign/Date Here Physician Comment/Change : Physician NPI Number #
== END 2023-05-21 14:10 | disposition home or self-care (01) ==
PROVIDERS: PCP Family Medicine; Visit Provider Internal Medicine
DX: R42 Dizziness and giddiness (principal); R26.81 Unsteadiness on feet; Z51.89 Encounter for other specified aftercare; M54.2 Cervicalgia
CPT/HCPCS: 95992; 97110; 97112; 97140; 97161; 97165